=== PATIENT | male | born 1950 ===

== ENCOUNTER 2021-02-01 11:15 | Inpatient (IN) | payer OTHER ==
[~2021-02-01] VITALS: Ht 170.2 cm; Wt 79.4 kg
[2021-02-06] MEDS ORDERED: OMEGA 3-6-9 11200 M1 (13:20)
[2021-02-08] MEDS ORDERED: CIPRO500 MG PO (11:57)
[2021-02-08] MEDS ORDERED: PERCOCET 5-3251 EACH PO (11:57)
[2021-02-08] MEDS ORDERED: ELIQUIS2.5 MG PO (11:57)
== END 2021-02-08 14:21 | DRG 470 ==
LOC: SURH 02-06 06:00 → O/R 02-06 06:00 → SURH 02-06 07:00 → O/R 02-07 14:26 → SURH 02-07 14:32
PROVIDERS: ADMIT Orthopaedic Surgery; ATTEND Orthopaedic Surgery
PROC: 0S9C0ZZ Drainage of Right Knee Joint, Open Approach (ICD-10-PCS; 2021-02-06)
PROC: 0SRC0J9 Replacement of Right Knee Joint with Synthetic Substitute, Cemented, Open Approach (ICD-10-PCS; principal; 2021-02-06 07:00)
DX: M17.11 Unilateral primary osteoarthritis, right knee (principal); D62 Acute posthemorrhagic anemia; M96.840 Postprocedural hematoma of a musculoskeletal structure following a musculoskeletal system procedure; Y83.8 Other surgical procedures as the cause of abnormal reaction of the patient, or of later complication, without mention of misadventure at the time of the procedure